=== PATIENT | male | born 1995 | race Two or more races ===

== ENCOUNTER 2018-08-06 00:40 | Emergency (ER) | payer OTHER ==
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
[2018-08-06] MEDS ORDERED: ERYTHROMYCIN 0.5% OPH OINTMENT 3.5 GM (ER DISP) OS PRN (04:01)
[2018-08-06 05:30] VITALS: BP 106/79
== END 2018-08-06 05:29 | disposition home or self-care (01) ==
LOC: ER 00:40
DX: S05.02XA Injury of conjunctiva and corneal abrasion without foreign body, left eye, initial encounter (principal); V49.9XXA Car occupant (driver) (passenger) injured in unspecified traffic accident, initial encounter
CPT/HCPCS: 70480; 99283